=== PATIENT | female | born 1970 | race American Indian/Alaskan Native ===

== ENCOUNTER 2017-08-28 14:29 | Inpatient (IN) | payer OTHER ==
[2017-08-28 15:16] LABS: Mean Corpuscular HGB Conc 28 % (30-34); Red Blood Count 2.72 M/mm3 (3.65-5.03)
[2017-08-28 15:24] LABS: Mean Corpuscular Hemoglobin 19 pg (28-32); Mean Corpuscular Volume 69 fl (79-97); Platelet Count 68 K/mm3 (140-440)
[2017-08-28 15:27] LABS: Hematocrit 18.7 % (30.3-42.9); Hemoglobin 5.3 gm/dl (10.1-14.3)
[2017-08-28 15:28] LABS: Alanine Aminotransferase 6 units/L (7-56); Albumin 3.8 g/dL (3.9-5); BUN/Creatinine Ratio 23; Blood Urea Nitrogen 9 mg/dL (7-17); Hemolysis Index 3
[2017-08-28] MEDS ORDERED: NACL 0.9% 1000 ML 1,000 ML ONE (15:32)
[2017-08-28] MEDS ORDERED: NACL 0.9% 500 ML 500 ML IV ONE (16:21)
[2017-08-28] MEDS ORDERED: MORPHINE IV ONE (16:21)
[2017-08-28] MEDS ORDERED: ZOFRAN IV ONE (16:21)
--- NOTE | 2017-08-28 16:23 | Emergency Department Report ---
HPI - General Chief Complaint: Vaginal Bleeding Time Seen by Provider: 08/28/17 15:30 - HPI HPI: The patient's 47-year-old female with a significant history of fibroids, presents for evaluation of abdominal pain and vaginal bleeding. The patient reports 2 days of moderate in severity cramping lower abdominal pain, exacerbated with movement, and associated with constant moderate to severe vaginal bleeding, worse in this a.m. She also has experienced generalized weakness and dizziness since this a.m. The patient denies fever, chills, night sweats, diarrhea, blood in the stool, dark tarry stool, dysuria, hematuria, flank pain, genital discharge, inability to pass flatus. ED Past Medical Hx - Past Medical History Previous Medical History?: Yes Additional medical history: fibroids - Surgical History Past Surgical History?: No - Social History Smoking Status: Never Smoker Substance Use Type: None - Medications Home Medications: Home Medications Medication Instructions Recorded Confirmed Last Taken Type No Known Home Medications [No 08/28/17 08/28/17 Unknown History Reported Home Medications] ED Review of Systems ROS: Stated complaint: VAG BLEED/ABD PAIN Other details as noted in HPI Constitutional: denies: fever ENT: denies: throat or neck pain Respiratory: denies: cough, shortness of breath Cardiovascular: denies: chest pain Endocrine: denies unexplained weight loss or gain Gastrointestinal: reports abdominal pain, nausea Genitourinary: reports VB denies: dysuria Musculoskeletal: denies: leg swelling Skin: denies: rash Neurological: denies: headache Hematological/Lymphatic: denies: easy bleeding or easy bruising Psych: denies sadness or hopelessness Physical Exam - Physical Exam Vital Signs: Vital Signs 08/28/17 08/28/17 14:53 14:55 Temperature 98.0 F Pulse Rate 67 Respiratory 11 L 12 Rate Blood Pressure 113/44 [Left] O2 Sat by Pulse 100 100 Oximetry Physical Exam: General: well-nourished, well-developed, no acute distress Head: Normocephalic, atraumatic Eyes: normal sclera ENT: Mucous membranes are pale and dry Neck: No neck stiffness, no cervical adenopathy Respiratory: Breath sounds equal bilaterally, no wheezing, rales, or rhonchi Cardio: S1 and S2 present, no murmurs, rubs, gallops, capillary refill is delayed Abdomen: Normoactive bowel sounds, soft abdomen, suprapubic tenderness + Chest WALL/Back: No tenderness to palpation of the chest wall, no CVA tenderness with percussion Musc: No pitting edema Skin: No rash Neuro: no facial drooping, normal speech Psych: Normal affect ED Course Vital Signs 08/28/17 08/28/17 14:53 14:55 Temperature 98.0 F Pulse Rate 67 Respiratory 11 L 12 Rate Blood Pressure 113/44 [Left] O2 Sat by Pulse 100 100 Oximetry ED Medical Decision Making - Lab Data Result diagrams: 08/28/17 14:51 08/28/17 14:51 - Medical Decision Making The patient was seen and examined by myself. The patient is placed on a potline monitor and continuous pulse ox. On initial evaluation, the patient was found to be in no distress. Evaluation orders are placed. IV access is established and the patient is given 1 L normal saline fluid bolus and Zofran for nausea, and IV analgesic for pain Lab results revealed critically low hemoglobin of 5.3, and otherwise was grossly not concerning. Red blood cell transfusion is ordered. The on-call hospitalist service was contacted. They agreed to admit the patient for further treatment and close monitoring. The ED admit order was placed. The patient was admitted in guarded condition. Critical care attestation.: If time is entered above; I have spent that time in minutes in the direct care of this critically ill patient, excluding procedure time. ED Disposition Clinical Impression: Severe anemia, Anemia requiring transfusions, Suprapubic pain, acute Disposition: 09 OP ADMIT IP TO THIS HOSP Is pt being admited?: Yes Does the pt Need Aspirin: No (active vaginal bleeding) Condition: Serious Time of Disposition: 16:02
[2017-08-28 16:50] LABS: INR 1.06 (0.87-1.13)
[2017-08-28 16:51] LABS: Partial Thromboplastin Time 30.7 Sec. (24.2-36.6)
--- NOTE | 2017-08-28 17:15 | History and Physical Report ---
History of Present Illness Chief complaint: Im bleeding all over the place History of present illness: 47 YO Female with Uterine Fibroids presents to ED for evaluation. Pt states that she has experienced abdominal cramping, and vaginal bleeding over the past 2 days with persistent symptoms over the entire timeframe. Pt states that the pain is 5/10, constant, diffuse, localized to her abdomen, worse with movement, without alleviating factors. Pt also acknowledges weakness and dizziness this am. Patient denies fever, chills, CP, Palpitations, NVD, BRBPR, hematuria, flank pain, constipation, or recent ill contacts. Pt seen and evaluated in ED and found to have blood loss anemia. Pt admitted to medical floor, and PRBC transfusion initiated in ED. Past History Past Medical History: other (Fibroids.) Past Surgical History: No surgical history, Other (reviewed) Social history: single. denies: smoking, alcohol abuse, prescription drug abuse Family history: no significant family history Medications and Allergies Allergies Allergy/AdvReac Type Severity Reaction Status Date / Time No Known Allergies Allergy Unverified 08/28/17 14:39 Home Medications Medication Instructions Recorded Confirmed Last Taken Type No Known Home Medications [No 08/28/17 08/28/17 Unknown History Reported Home Medications] Review of Systems Constitutional: no weight loss, no weight gain Ears, nose, mouth and throat: no ear pain, no ear discharge, no tinnitis, no decreased hearing, no nose pain, no nasal congestion Breasts: no change in shape, no swelling, no mass Cardiovascular: no chest pain, no orthopnea, no palpitations, no shortness of breath Respiratory: no cough, no cough with sputum, no excessive sputum, no hemoptysis Gastrointestinal: abdominal pain, no nausea, no vomiting, no diarrhea, no coffee ground emesis, no BRBPR, no melena, no hematochezia Genitourinary Female: menorrhagia, no pelvic pain, no flank pain, no dysuria, no urinary frequency, no urgency, no stress incontinence, no vaginal itching, no vaginal discharge, no vaginal odor, no abnormal vaginal bleeding Rectal: no pain, no bleeding Musculoskeletal: no neck stiffness, no neck pain, no shooting arm pain, no arm numbness/tingling, no low back pain, no shooting leg pain, no leg numbness/ tingling Integumentary: no rash, no pruritis, no redness, no sores, no wounds, no jaundice Neurological: no transient paralysis, no paralysis, no weakness, no parathesias , no numbness, no tingling, no seizures Exam - Constitutional Vitals: Temp Pulse Resp BP Pulse Ox 98.0 F 71 12 111/68 100 08/28/17 14:53 08/28/17 16:15 08/28/17 16:15 08/28/17 16:15 08/28/17 16:15 General appearance: Present: mild distress - EENT Eyes: Present: PERRL (conjunctivel pallor) ENT: hearing intact, clear oral mucosa - Neck Neck: Present: supple, normal ROM - Respiratory Respiratory effort: normal Respiratory: bilateral: CTA - Cardiovascular Heart Sounds: Present: S1 & S2. Absent: rub, click - Extremities Extremities: pulses symmetrical, No edema Peripheral Pulses: within normal limits - Abdominal General gastrointestinal: Present: soft, non-tender, non-distended, normal bowel sounds Female genitourinary: Present: normal - Integumentary Integumentary: Present: clear, warm, dry - Musculoskeletal Musculoskeletal: gait normal, strength equal bilaterally - Psychiatric Psychiatric: appropriate mood/affect, intact judgment & insight - Neurologic Neurologic: CNII-XII intact, moves all extremities Results - Labs CBC & Chem 7: 08/28/17 14:51 08/28/17 14:51 Labs: Abnormal lab results 08/28/17 08/28/17 08/28/17 Range/Units 14:51 14:51 14:51 RBC 2.72 L (3.65-5.03) M/mm3 Hgb 5.3 L* (10.1-14.3) gm/dl Hct 18.7 L* (30.3-42.9) % MCV 69 L (79-97) fl MCH 19 L (28-32) pg MCHC 28 L (30-34) % RDW 38.0 H (13.2-15.2) % Plt Count 68 L (140-440) K/mm3 Carbon Dioxide 20 L (22-30) mmol/L Creatinine 0.4 L (0.7-1.2) mg/dL ALT 6 L (7-56) units/L Albumin 3.8 L (3.9-5) g/dL Crossmatch See Detail Assessment and Plan - Patient Problems (1) Blood loss anemia Current Visit: Yes Status: Acute Plan to address problem: PRBC Transfusion, repeat CBC, (2) Uterine fibroid Current Visit: Yes Status: Acute Plan to address problem: Gynecology consulted, (3) Severe anemia Current Visit: Yes Status: Acute Plan to address problem: CBC, BPRBC transfusion, iron therapy, (4) DVT prophylaxis Current Visit: Yes Status: Acute
[2017-08-28] MEDS ORDERED: NACL 0.9% 500 ML 500 ML IV NR (17:16)
[2017-08-28] MEDS ORDERED: TYLENOL PO PRN (17:17)
[2017-08-28] MEDS ORDERED: ZOFRAN IV PRN (17:17)
[2017-08-28] MEDS ORDERED: PROVENTIL IH PRN (17:17)
[2017-08-28] MEDS ORDERED: MILK OF MAGNESIA PO PRN (17:17)
[2017-08-28] MEDS ORDERED: DULCOLAX PR PRN (17:17)
[2017-08-28 17:22] LABS: Basophils % (Manual) 0 % (0.0-1.8); Total Cells Counted 100
[2017-08-28 17:23] LABS: Anisocytosis 2+; Hypochromasia 2+; Platelet Estimate Consistent w Auto
[2017-08-29 05:51] LABS: Hematocrit 26.8 % (30.3-42.9); Hemoglobin 8.4 gm/dl (10.1-14.3); Mean Corpuscular HGB Conc 31 % (30-34); Mean Corpuscular Volume 78 fl (79-97); Red Blood Count 3.45 M/mm3 (3.65-5.03)
[2017-08-29 05:52] LABS: Mean Corpuscular Hemoglobin 24 pg (28-32)
[2017-08-29 05:53] LABS: Platelet Count 46 K/mm3 (140-440); Red Cell Distribution Width 34.1 % (13.2-15.2)
[2017-08-29 07:10] LABS: Band Neutrophils # (Manual) 0.2 K/mm3; Basophils % (Manual) 0 % (0.0-1.8); Eosinophils % (Manual) 0 % (0.0-4.3); Total Cells Counted 100
[2017-08-29 07:11] LABS: Anisocytosis 2+; Hypochromasia 1+; Ovalocytes 1+; Platelet Estimate Consistent w Auto
[2017-08-29 13:40] LABS: Bilirubin,Urine NEG (Negative); Blood,Urine MOD (Negative); Color,Urine Yellow (Yellow); Mucus,Urine FEW /HPF; Protein,Urine <15 mg/dL mg/dL (Negative)
--- NOTE | 2017-08-29 18:25 | Consultation ---
History of Present Illness Consult date: 08/29/17 Requesting physician: CASSIDY LEE Reason for consult: menorrhagia, other (Leiomyoma, severe anemia) History of present illness: This is a 47-year-old black female para 3003 whose last which appeared was 08/24. Patient was admitted to hospital secondary to menorrhalgia with hemoglobin of 5.3. Patient yesterday started having heavy bleeding at work and transferred to the emergency room. Patient has received 3 units of packed red blood cells with increase her hemoglobin to 8.4. Patient now is asymptomatic with minimal vaginal bleeding at this time. She is presently lying in Hospital bed with the cardiac monitoring but no complaints . 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 denies: abnormal PAP smear Social history: full code. denies: smoking, alcohol abuse, prescription drug abuse - Obstetrical History : 3 Para: 3 Hx # Term Pregnancies: 0 Number of Pregnancies: 0 Spontaneous Abortions: 0 Induced : 0 Number of Living Children: 3 Medications and Allergies Allergies Allergy/AdvReac Type Severity Reaction Status Date / Time No Known Allergies Allergy Unverified 08/28/17 14:39 Home Medications Medication Instructions Recorded Confirmed Last Taken Type No Known Home Medications [No 08/28/17 08/28/17 Unknown History Reported Home Medications] Active Meds: Active Medications Acetaminophen (Tylenol) 650 mg PO Q4H PRN PRN Reason: Pain MILD(1-3)/Fever >100.5/ARGUELLO Albuterol (Proventil) 2.5 mg IH Q4HRT PRN PRN Reason: Shortness Of Breath Bisacodyl (Dulcolax) 10 mg TN QDAY PRN PRN Reason: Constipation unrelieved by MOM Magnesium Hydroxide (Milk Of Magnesia) 30 ml PO Q4H PRN PRN Reason: Constipation Ondansetron HCl (Zofran) 4 mg IV Q8H PRN PRN Reason: N/V unrelieved by Reglan Review of Systems Constitutional: other (see HPI) - Vital Signs Vital signs: Vital Signs Pulse Resp Pulse Ox 61 16 100 08/28/17 14:44 08/28/17 14:44 08/28/17 14:44 Temp Pulse Resp BP Pulse Ox 98.5 F 64 16 112/70 99 08/29/17 15:40 08/29/17 15:40 08/29/17 15:40 08/29/17 15:40 08/29/17 15:40 - Physical Exam Breasts: Positive: deferred Cardiovascular: Regular rate Abdomen: Positive: normal appearance, soft Genitourinary (Female): Positive: other (deferred) Results Result Diagrams: 08/29/17 05:35 08/28/17 14:51 Abnormal lab results 08/28/17 08/29/17 Range/Units 14:51 05:35 RBC 3.45 L (3.65-5.03) M/mm3 Hgb 8.4 L D (10.1-14.3) gm/dl Hct 26.8 L D (30.3-42.9) % MCV 78 L (79-97) fl MCH 24 L (28-32) pg RDW 34.1 H (13.2-15.2) % Plt Count 46 L (140-440) K/mm3 Seg Neuts % (Manual) 80.0 H (40.0-70.0) % Lymphocytes % (Manual) 13.0 L (13.4-35.0) % Lymphocytes # (Manual) 0.7 L (1.2-5.4) K/mm3 Crossmatch See Detail All other labs normal. Assessment and Plan - Patient Problems (1) Menorrhagia Current Visit: Yes Status: Acute Qualifiers: Menorrahagia type: with regular cycle Qualified Code(s): N92.0 - Excessive and frequent menstruation with regular cycle Plan to address problem: Patient with history of menorrhalgia at least the last 2 years secondary to fibroids. 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 for patient desires to be evaluated for surgical treatment for fibroids (2) Anemia requiring transfusions Current Visit: Yes Status: Acute Plan to address problem: Secondary to #1 (3) Severe anemia Current Visit: Yes Status: Acute Plan to address problem: Secondary to #1 (4) Uterine fibroid Current Visit: Yes Status: Chronic Qualifiers: Uterine leiomyoma location: intramural Qualified Code(s): D25.1 - Intramural leiomyoma of uterus Plan to address problem: Patient states was diagnosed with fibroids approximately 2 years ago when she was hospitalized of 4 menorrhalgia and at that time was admitted and received 2 units of packed red blood cells due to severe anemia. Patient states she was told that she had small fibroids at that time and the plan was to expectantly manage them patient did have a follow-up ultrasound and exam senior benefits manager last year with the plan to try medical treatment and if failed will move to surgical treatment. Patient now with decreased bleeding. Chart reviewed and did note that the patient is scheduled for discharge tomorrow. I gave my office information to the patient to follow-up in office next week. Will also give her prescription for Lysteda and ibuprofen. Patient be worked up for probable hysterectomy as an outpatient. Patient instructed to call if she has any increased bleeding concern over increased pain prior to appointment. Thank you very much for this consultation. Please contact me if you have any further questions.
--- NOTE | 2017-08-29 19:07 | Discharge Summary ---
Providers - Providers Date of Admission: 08/28/17 17:17 Date of discharge: 08/29/17 Attending physician: TAY DUNAWAY 08/28/17 18:06 Consult to Physician [CONS] Routine Consulting Provider: ANAIS LAWS Reason For Exam: uterine fibroids Place consult to:: DR. LAWS Notified:: Dexter Phone number called:: [phone] Was contact made?: Yes If yes, spoke with:: VERNON Time called:: 08:04 Primary care physician: CHRYSTAL VICK Hospitalization Condition: Serious Hospital course: Patient admitted for menorrhagia and symptomatic anemia secondary to uterine fibroids. Patient had failed nonsurgical treatment of fibroids previously. [employer] OPERATOR consult was obtained and they recommended surgical option. But this can be done on outpatient basis. Patient will follow with Dr. Olivares on outpatient for surgical correction of uterine fibroid. Patient was given Lydesta and ibuprofen Disposition: - TO HOME OR SELFCARE - Discharge Diagnoses (1) Anemia requiring transfusions Status: Acute (2) Blood loss anemia Status: Acute (3) Menorrhagia Status: Acute Qualifiers: Menorrahagia type: with regular cycle Qualified Code(s): N92.0 - Excessive and frequent menstruation with regular cycle Core Measure Documentation - Palliative Care Palliative Care/ Comfort Measures: Not Applicable - Core Measures Any of the following diagnoses?: none Exam - Constitutional Vitals: Temp Pulse Resp BP Pulse Ox 98.5 F 64 16 112/70 99 08/29/17 15:40 08/29/17 15:40 08/29/17 15:40 08/29/17 15:40 08/29/17 15:40 General appearance: Present: no acute distress, well-nourished - EENT Eyes: Present: PERRL ENT: hearing intact, clear oral mucosa - Neck Neck: Present: supple, normal ROM - Respiratory Respiratory effort: normal Respiratory: bilateral: CTA - Cardiovascular Heart Sounds: Present: S1 & S2. Absent: rub, click - Extremities Extremities: pulses symmetrical, No edema Peripheral Pulses: within normal limits - Abdominal General gastrointestinal: Present: soft, non-tender, non-distended, normal bowel sounds Female genitourinary: Present: normal - Integumentary Integumentary: Present: clear, warm, dry - Musculoskeletal Musculoskeletal: gait normal, strength equal bilaterally - Psychiatric Psychiatric: appropriate mood/affect, intact judgment & insight - Neurologic Neurologic: CNII-XII intact, moves all extremities Plan Activity: no restrictions Weight Bearing Status: Full Weight Bearing Diet: advance as tolerated Follow up with: PRIMARY CARE, [Referring] - 3-5 Days Prescriptions: Ibuprofen [Motrin 800 MG tab] 800 mg PO Q6H PRN #30 tablet PRN Reason: Pain Tranexamic Acid [Lysteda] 650 mg PO TID PRN #30 tab PRN Reason: Heavy mentrual bleeding
[2017-08-30 07:41] VITALS: BP 105/58
--- NOTE | 2017-08-30 09:14 | Event Note ---
Date: 08/30/17 Patient stable to discharge home
== END 2017-08-30 09:36 | disposition home or self-care (01) | DRG 760 ==
LOC: ED 14:29 → 3A 17:17
PROVIDERS: ADMIT Internal Medicine; ATTEND Internal Medicine
PROC: 30233N1 Transfusion of Nonautologous Red Blood Cells into Peripheral Vein, Percutaneous Approach (ICD-10-PCS; principal; 2017-08-28)
DX: D25.9 Leiomyoma of uterus, unspecified (principal); D62 Acute posthemorrhagic anemia; N93.9 Abnormal uterine and vaginal bleeding, unspecified
CPT/HCPCS: 36415; 80053; 81001; 84703; 85007; 85025; 85610; 85730; 86850; 86900; 86901; 86920; 96374; J2405; J7030; J7040; P9016

== ENCOUNTER 2017-12-23 19:01 | Emergency (ER) | payer OTHER ==
[2017-12-23 19:31] VITALS: BP 111/69
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
== END 2017-12-23 23:01 | disposition home or self-care (01) ==
LOC: ED 19:01
DX: S16.1XXA Strain of muscle, fascia and tendon at neck level, initial encounter (principal); V89.2XXA Person injured in unspecified motor-vehicle accident, traffic, initial encounter; Y93.89 Activity, other specified; Y92.89 Other specified places as the place of occurrence of the external cause; Y99.8 Other external cause status
CPT/HCPCS: 99282